=== PATIENT | female | born 1995 ===

== ENCOUNTER 2017-07-26 19:22 | Emergency (ER) | payer SELFPAY ==
[2017-07-26 20:42] VITALS: BP 108/68; PULSE 116; RESP 20; TEMP 100.1; O2SAT 100
--- NOTE | 2017-07-26 22:41 | C.PDOC ---
History Of Present Illness Patient is a 22 y/o female who presents to the ED with complaints of headache, cough, sore throat and body aches with subjective fever x 1 day. Patient has no other physical complaints at this time. Time Seen by Provider: 07/26/17 22:00 Chief Complaint (Nursing): ENT Problem History Per: Patient History/Exam Limitations: no limitations Onset/Duration Of Symptoms: Days (1 day) Current Symptoms Are (Timing): Still Present Recent travel outside of the [place]: No Past Medical History Reviewed: Historical Data, Nursing Documentation, Vital Signs Vital Signs: Last Vital Signs Temp 100.1 F H 07/26/17 20:36 Pulse 116 H 07/26/17 20:36 Resp 20 07/26/17 20:36 BP 108/68 07/26/17 20:36 Pulse Ox 100 07/26/17 22:42 - Medical History PMH: No Chronic Diseases Surgical History: No Surg Hx Family History: States: No Known Family Hx - Social History Hx Tobacco Use: No Hx Alcohol Use: Yes Hx Substance Use: No Review Of Systems Constitutional: Positive for: Fever, Chills, Malaise ENT: Positive for: Throat Pain (sore throat) Respiratory: Positive for: Cough Neurological: Positive for: Headache Physical Exam - Physical Exam Appears: No Acute Distress, Other (uncomfortable) Head: Atraumatic, Normacephalic Eye(s): bilateral: PERRL, EOMI Ear(s): Bilateral: Normal Oral Mucosa: Moist Throat: Erythema Neck: Supple Chest: Symmetrical, No Tenderness Cardiovascular: Rhythm Regular (slightly tachycardic rate), No Murmur Respiratory: Other (clear to auscultation bilaterally) Gastrointestinal/Abdominal: Bowel Sounds (normoactive), Soft, No Tenderness, No Distention ED Course And Treatment O2 Sat by Pulse Oximetry: 100 Progress Note: Tylenol administered. Medical Decision Making Medical Decision Making: flu like symptoms x 1 day- tamiflu and Tylenol Disposition Counseled Patient/Family Regarding: Diagnosis, Need For Followup, Rx Given - Disposition Referrals: [facility] [Outside] Disposition: HOME/ ROUTINE Disposition Time: 22:39 Condition: STABLE Additional Instructions: Milly muchos lquidos, t con miel y limn cantrell. [place] Tylenol cada 4 a 6 horas para la fiebre y el dolor. [place] la gripe Dana segn lo recetado. Se recomend un mayor reposo en cama. Poco a poco con anaya mdico o en la clnica la prxima semana. Drink a lot of fluids, tea with honey and lemon good. Take Tylenol every 4-6 hours for fever and pain. Take Dana flu as prescribed. Increased bed rest recommended. FOllow up with your doctor or in clinic next week. Prescriptions: Acetaminophen [Tylenol 325mg tab] 650 mg PO Q6 #30 tab Oseltamivir Phosphate [Tamiflu] 75 mg PO BID #10 capsule Instructions: Influenza (ED) Forms: Gen Discharge Inst [employer], [employer] [facility] (Latvian), [employer] (Stateless), Work Excuse Print Language: TAJIK - Clinical Impression Clinical Impression: Influenza - Scribe Statement The provider has reviewed the documentation as recorded by the Scribe Tammi Kumari All medical record entries made by the Scribe were at my direction and personally dictated by me. I have reviewed the chart and agree that the record accurately reflects my personal performance of the history, physical exam, medical decision making, and the department course for this patient. I have also personally directed, reviewed, and agree with the discharge instructions and disposition.
== END 2017-07-26 22:50 | disposition home or self-care (01) ==
LOC: C.ER 19:22
DX: J11.1 Influenza due to unidentified influenza virus with other respiratory manifestations (principal)